=== PATIENT | male | born 1960 | race Caucasian/White ===

== ENCOUNTER 2022-10-26 13:20 | Emergency (ER) | payer MEDICAID, SELFPAY ==
--- NOTE | ~2022-10-26 | XR_ITS ---
EXAMINATION: XR LUMBAR SPINE CLINICAL INFORMATION: Low back pain radiating down the right leg. COMPARISON: None available. TECHNIQUE: Three views of the lumbosacral spine. FINDINGS: There is grade 1 anterolisthesis of L5 on S1 by 6 mm. Subtle grade 1 retrolisthesis is evident at L3 on L4 and L4 on L5 by approximately 3 mm at each level. No additional spondylolisthesis. Vertebral body heights are normal. No fractures. There is [id number] multilevel degenerative disc disease in the lumbar spine, most notably at L2-L3 and L3-L4, characterized by loss of intervertebral disc height with endplate sclerosis and endplate osteophytes. Minimal osteoarthritis at the other levels. Calcific atherosclerosis is present in the abdominal aorta and iliac arteries. Hernia mesh coils are evident in the left inguinal region. XR/XR lumbar spine 2-3V IMPRESSION: 1. [id number] multilevel degenerative disc disease, most notably at L2-L3 and L3-L4. 2. Grade 1 anterolisthesis of L5 on S1 and grade 1 retrolisthesis at L3-L4 and L4-L5.
[2022-10-26 13:27] VITALS: BP 154/93; PULSE 82; RESP 16; TEMP 36.8; O2SAT 97; BMI 25.0
--- NOTE | 2022-10-26 13:30 | ED_ITS ---
HPI - General Adult General Chief complaint: Extremity Problem <HARRY Payne - Last Filed: 11/08/22 12:36> Stated complaint: r leg pain numbness <HARRY Payne - Last Filed: 11/08/22 12:36> Time Seen by Provider: 10/26/22 13:38 <HARRY Payne - Last Filed: 11/08/22 12:36> Source: patient <Kg Rico MD - Last Filed: 10/26/22 14:12> Mode of arrival: ambulatory <Kg Rico MD - Last Filed: 10/26/22 14:12> Limitations: no limitations <Kg Rioc MD - Last Filed: 10/26/22 14:12> History of Present Illness HPI narrative: 61-year-old male presents with paresthesias predominant in the right lower extremity. His also started going to the left lower extremity. This started approximately 3 days ago. Patient describes symptoms as moderate. Not associated with weakness. There is no significant pain. No recent injuries falls or complaints. He has had this once or twice in the past. There has been no prior treatment. Patient denies any numbness or tingling elsewhere. Location is predominantly in the back of the legs bilaterally and notes a going to the big toe. Patient denies any saddle paresthesias, loss of bowel or bladder control. Denies intravenous drug abuse, fevers. <Kg Rico MD - Last Filed: 10/26/22 14:12> Related Data Home medications: Previous Rx's Medication Instructions Recorded gabapentin 300 mg capsule 300 mg PO BID #20 caps 10/26/22 methylprednisolone 4 mg tablets in 4 mg PO DAILY #21 ea 10/26/22 a dose pack (Medrol (George)) <HARRY Payne - Last Filed: 11/08/22 12:36> Allergies/adverse reactions: Allergies Allergy/AdvReac Type Severity Reaction Status Date / Time acetaminophen [From Percocet] Allergy Hives Verified 10/26/22 13:29 oxycodone [From Percocet] Allergy Hives Verified 10/26/22 13:29 <HARRY Payne - Last Filed: 11/08/22 12:36> PMF Social History Social History: Social History Advance Directives: Yes Advance Directives on File: No <HARRY Payne - Last Filed: 11/08/22 12:36> Physical Exam ED Vital Signs: Vital Signs - 24 hr 10/26/22 13:27 Temperature 98.3 F Pulse Rate 82 Respiratory Rate 16 Blood Pressure 154/93 H Pulse Oximetry 97 Oxygen Delivery Method Room Air BMI result Body Mass Index 25.0 <HARRY Payne - Last Filed: 11/08/22 12:36> Vital Signs - 24 hr 10/26/22 13:27 Temperature 98.3 F Pulse Rate 82 Respiratory Rate 16 Blood Pressure 154/93 H Pulse Oximetry 97 Oxygen Delivery Method Room Air BMI result Body Mass Index 25.0 <Kg Rico MD - Last Filed: 10/26/22 14:12> GEN: Well developed, no acute distress, alert, oriented HEENT: Normocephalic, atraumatic, normal external ears, nose appears normal Eyes: Normal to appearance Neck: Supple, no lymphadenopathy Respiratory: Talks in complete sentences, no respiratory distress Extremities: No clubbing cyanosis or edema Neurologic: No focal neurologic deficits, cranial nerves 2-12 intact, gait normal Skin: No rash Back: No midline tenderness, step-off <Kg Rico MD - Last Filed: 10/26/22 14:12> Course Course Course Narrative: RME: 61-year-old male presents to the ED for lower back pain radiating down right leg with numbness/tingling. Patient states trauma in terms of falli ng onto his back 4 weeks ago. Patient denies any urinary/bowel incontinence. Lumbar spine x-ray ordered. <HARRY Payne - Last Filed: 11/08/22 12:36> Reevaluation(s) Reevaluation #1: Patient has what appears to be spinal stenosis or pinched nerve. Has no signs or symptoms of cauda equina syndrome or epidural abscess. X-ray revealed degenerative changes. There are no fractures. Will start patient on steroids and gabapentin. He should follow-up with his primary care doctor in 1 week. He may require an outpatient MRI. Patient was instructed to return for any worsening or concerning symptoms. <Kg Rico MD - Last Filed: 10/26/22 14:12> Time: 14:10 <Kg Rico MD - Last Filed: 10/26/22 14:12> Medications Administered Discontinued Medications Generic Name Dose Route Start Last Admin Trade Name Freq PRN Reason Stop Dose Admin Dexamethasone 6 mg 10/26/22 14:04 10/26/22 14:20 Dexamethasone 6 Mg Tablet PO 10/26/22 14:05 6 mg ONCE ONE Administration Gabapentin 300 mg 10/26/22 14:04 10/26/22 14:20 Gabapentin 300 Mg Capsule PO 10/26/22 14:05 300 mg ONCE ONE Administration <HARRY Payne - Last Filed: 11/08/22 12:36> Medications Administered Discontinued Medications Generic Name Dose Route Start Last Admin Trade Name Freq PRN Reason Stop Dose Admin Dexamethasone 6 mg 10/26/22 14:04 10/26/22 14:20 Dexamethasone 6 Mg Tablet PO 10/26/22 14:05 6 mg ONCE ONE Administration Gabapentin 300 mg 10/26/22 14:04 10/26/22 14:20 Gabapentin 300 Mg Capsule PO 10/26/22 14:05 300 mg ONCE ONE Administration <Kg Rico MD - Last Filed: 10/26/22 14:12> Medical Decision Making Medical Decision Making MDM Narrative: 61-year-old male presents with bilateral paresthesias lower extremities the following nerve distribution consistent with a radicular type of paresthesia. No new falls or injury. X-ray did not identify any acute fracture. There are degenerative changes. Differential diagnosis could include degenerative disc disease, disc protrusion, spinal stenosis. Less likely would be neuropathy. Will discharge patient on steroids and gabapentin to follow-up with primary care provider in 1 week. This could progress which case he will need to return for re-evaluation. Patient may require outpatient MRI. <Kg Rico MD - Last Filed: 10/26/22 14:12> Differential Diagnosis Differential Diagnoses: The differential diagnosis associated with the presentation includes (Disc disease, spinal stenosis, degenerative disc, neuropathy) <Kg Rico MD - Last Filed: 10/26/22 14:12> Independent Interpretation I performed an independent interpretation of an: Plain X-Ray (Lumbar spine, degenerative changes, no acute fracture or subluxation) <Kg Rico MD - Last Filed: 10/26/22 14:12> Prescription Management I considered prescription management with: Pain Medication <Kg Rico MD - Last Filed: 10/26/22 14:12> Discharge Plan Discharge Clinical Impression: Bilateral leg paresthesia <HARRY Payne - Last Filed: 11/08/22 12:36> Patient Disposition: Home, Self-Care <HARRY Payne - Last Filed: 11/08/22 12:36> Instructions: Paresthesia (ED) <HARRY Payne - Last Filed: 11/08/22 12:36> Prescriptions: New gabapentin 300 mg capsule 300 mg PO BID Qty: 20 0RF methylprednisolone [Medrol (George)] 4 mg tablets,dose pack 4 mg PO DAILY Qty: 21 0RF Rx Instructions: take as directed <HARRY Payne - Last Filed: 11/08/22 12:36> Referrals: Chely Mane, OPERATIONS AND MAINTENANCE SPECIALIST [Primary Care Provider] - 1 week <HARRY Payne - Last Filed: 11/08/22 12:36> Interventions: ED Discharge Assessment Last Done: 10/26/22 14:23 <HARRY Payne - Last Filed: 11/08/22 12:36> Discharge Date/Time: 10/26/22 14:23 <HARRY Payne - Last Filed: 11/08/22 12:36>
[2022-10-26] MEDS: dexAMETHasone 6 MG TABLET PO (14:20)
[2022-10-26] MEDS: Gabapentin 300 MG CAPSULE PO (14:20)
== END 2022-10-26 14:23 | disposition home or self-care (01) ==
PROVIDERS: Emergency Provider Emergency Medicine; PCP Nurse Practitioner Family
DX: R20.2 Paresthesia of skin (principal); M54.50 Low back pain, unspecified; Z79.899 Other long term (current) drug therapy
CPT/HCPCS: 72100; 99282; 99283; J8540